=== PATIENT | male | born 1960 ===

== ENCOUNTER 2017-12-21 08:10 | Emergency (ER) | payer OTHER ==
[2017-12-21 08:38] VITALS: BP 138/83
--- NOTE | 2017-12-21 08:49 | UC ---
Upper Extremity HPI - HPI Summary HPI Summary: Vaishnavi Enriquez, scribed for attending Lea Lo MD. Pt is a 57 y/o M who presents to [facility] c/o right middle finger pain and erythema around the nail bed. Sx have been present for 1 week, gradually worsening in the last few days. Symptoms first presented as mild "soreness" around the nail bed. Associated pain is severe, ranked 8/10 and has been treating with warm soaks. States that he cooks a lot and may have burned it, though he is unsure. - History of Current Complaint Chief Complaint: UCUpperExtremity Stated Complaint: RIGHT MIDDLE FINGER PAIN Time Seen by Provider: 12/21/17 08:40 Hx Obtained From: Patient Onset/Duration: Gradual Onset, Lasting Weeks - 1 week, Still Present Severity Currently: Severe Pain Intensity: 8 Pain Scale Used: 0-10 Numeric Location Of Pain: Is Discrete @ - Around right middle finger nailbed Aggravating Factor(s): Nothing Alleviating Factor(s): Other: - Warm soaks Associated Signs And Symptoms: Positive: Redness - Allergies/Home Medications Allergies/Adverse Reactions: Allergies Allergy/AdvReac Type Severity Reaction Status Date / Time cat dander Allergy Mild See Comment Verified 12/21/17 08:24 horse dander Allergy Mild See Comment Verified 12/21/17 08:24 mold Allergy Mild See Comment Verified 12/21/17 08:24 pollen extracts Allergy Mild See Comment Verified 12/21/17 08:23 Home Medications: Home Medications RX: Albuterol HFA INHALER* [Ventolin HFA Inhaler*] 2 inh INH QID PRN 12/21/17 [ History Confirmed 12/21/17] RX: Allopurinol TAB* [Zyloprim 100 MG TAB*] 1 tab PO QAM 12/21/17 [History Confirmed 12/21/17] RX: Aspirin 81 mg CHEW TAB* 1 tab PO QAM 12/21/17 [History Confirmed 12/21/17] RX: Cholecalciferol (Vitamin D3) [D3-2000] 1 cap PO QAM 12/21/17 [History Confirmed 12/21/17] RX: Levothyroxine TAB* [Synthroid TAB*] 1 tab PO QAM 12/21/17 [History Confirmed 12/21/17] RX: [place]-3 Fatty Acids/Fish Oil [Fish Oil 1,000 mg Softgel] 1 cap PO QAM [History Confirmed 12/21/17] RX: Rosuvastatin (NF) [Crestor (NF)] 10 mg PO QAM 12/21/17 [History Confirmed ] PMH/Surg Hx/FS Hx/Imm Hx Endocrine History: Thyroid Disease - Hypothyroid Respiratory History: Asthma - Surgical History Surgical History: None - Family History Known Family History: Negative: Diabetes - Social History Alcohol Use: Weekly Substance Use Type: None Smoking Status (MU): Former Smoker Type: Cigarettes Amount Used/How Often: CASUAL 1-2/DAY MANY YEARS AGO - Immunization History Most Recent Tetanus Shot: UNKNOWN Review of Systems Constitutional: Negative Skin: Other - Right middle finger pain and erythema Eyes: Negative ENT: Negative Respiratory: Negative Cardiovascular: Negative Gastrointestinal: Negative Genitourinary: Negative Motor: Negative Neurovascular: Negative Musculoskeletal: Negative Neurological: Negative Psychological: Negative All Other Systems Reviewed And Are Negative: Yes Physical Exam - Summary Physical Exam Summary: Appearance: Well-appearing, Well-nourished Skin: Warm, right middle finger paronychia with a small amount of pus collection the size of about 3-4 mm lateral to the fingernail, NVI Eyes: Normal ENT: Normal Neck: Supple, nontender Respiratory: Clear to auscultation Cardiovascular: Regular rate, regular rhythm. Normal S1, S2. Musculoskeletal: Normal, Strength/ROM Intact Neurological: Normal, A&Ox3 Psychiatric: Normal General: No acute distress Triage Information Reviewed: Yes Vital Signs: Initial Vital Signs Temp 97.3 F 12/21/17 08:28 Pulse 88 12/21/17 08:28 Resp 16 12/21/17 08:28 BP 138/83 12/21/17 08:28 Pulse Ox 98 12/21/17 08:28 Vital Signs Reviewed: Yes Re-Evaluation - Re-Evaluation First Eval Re-Evaluation Time: 09:01 Comment: Aspiration Upper Extremity Course/Dx - Course Course Of Treatment: aspirated small amount of pus with 18G needle with good decompression of swelling, take abx as prescribed - Differential Dx/Diagnosis Provider Diagnoses: Right middle finger paronychia Discharge - Sign-Out/Discharge Documenting (check all that apply): Patient Departure - Discharge - Discharge Plan Condition: Stable Disposition: HOME Prescriptions: Amoxicillin/Clavulanate TAB* [Augmentin TAB 875*] 875 mg PO BID 10 Days #10 tab Patient Education Materials: Ignacio (ED) - Billing Disposition and Condition Condition: STABLE Disposition: Home
== END 2017-12-21 09:24 | disposition home or self-care (01) ==
LOC: UCEAST 08:10
DX: L03.011 Cellulitis of right finger (principal); E03.9 Hypothyroidism, unspecified; Z79.899 Other long term (current) drug therapy; J45.909 Unspecified asthma, uncomplicated; Z87.891 Personal history of nicotine dependence; Z79.82 Long term (current) use of aspirin; Z91.048 Other nonmedicinal substance allergy status
CPT/HCPCS: 10060; 99202; G0463